=== PATIENT | female | born 1960 | race Caucasian/White ===

== ENCOUNTER 2017-03-31 16:45 | Observation (INO) | payer OTHER ==
[~2017-03-31] VITALS: Ht 167.6 cm; Wt 136.7 kg
[2017-03-31 16:57] VITALS: BP 166/84; PULSE 70; RESP 15; O2SAT 97
--- NOTE | 2017-03-31 17:41 | DRSVH ---
PROCEDURE: X-RAY CHEST ONE VIEW, PORTABLE ([id number]) INDICATIONS: chest pain TECHNIQUE: One view of the chest was acquired. COMPARISON: None. FINDINGS: Surgical changes and devices: None. Lungs and pleura: No pleural effusions or pneumothorax. Lungs are clear. Mediastinum: Mediastinal contours appear normal. Heart size is normal. Bones and chest wall: No suspicious bony lesions. Overlying soft tissues appear unremarkable. IMPRESSION: No radiographic evidence of acute cardiopulmonary pathology. Dictated by: Adonay Mark M.D. on 03/31/2017 at 17:38 Approved by: Adonay Mark M.D. on 03/31/2017 at 17:38
[2017-03-31 17:55] LABS: BASOPHILS % (AUTO) 0.4 % (0-3); EOSINOPHILS % (AUTO) 3.2 % (0-5); MONOCYTES % (AUTO) 6.8 % (4-12); Mean Corpuscular Hemoglobin 28.6 pg (27.0-35.0); Mean Corpuscular Volume 83.3 fL (81-100); NEUTROPHILS % (AUTO) 56.7 % (40-74); Platelet Count 255 bil/L (150-400)
[2017-03-31 18:16] VITALS: BP 143/64; PULSE 71; RESP 16; O2SAT 96
[2017-03-31 18:20] LABS: TROPONIN T < 0.010 ug/L (0.0-0.011)
[2017-03-31 18:26] LABS: Magnesium 2.1 mg/dL (1.6-2.6)
--- NOTE | 2017-03-31 18:31 | ED.REPORT ---
HPI-Chest Pain 40 and Over Date of Service Mar 31, 2017 ED Provider: Sanket Lainez MD A 56 year old female with hypertension, sleep apnea and diabetes is referred to the ED from Urgent Care complaining of chest pressure. The discomfort began yesterday and has waxed and waned since with a maximum severity of 7/10. She felt well last night, but the pressure returned at 09:00 this morning. The pain radiates into her neck and is accompanied by headache and pressure in her ears, though the pt denies nausea. The pain is not exertional. The pt also complains of dyspnea on exertion, which has been present for several months. Nursing Notes Stated Complaint: CHEST PRESSURE Chief Complaint: Chest Pain Nursing Notes Reviewed: Yes ([place], [place] not reconciled) Allergies: Coded Allergies: tetracycline (Verified Allergy, Unknown, THROAT SWELLS, 03/31/17) RESPIRATORY DISTRESS Uncoded Allergies: SOAPS, PERFUMES SCENTS (Allergy, Unknown, 12/30/03) TAPES (Allergy, Unknown, SOME TAPES-SKIN IS REMOVED, 12/30/03) TETRACYCLINE=RESP DISTRESS (Allergy, Unknown, 12/25/03) Tetracyclines (Allergy, Unknown, THROAT SWELLS, 12/30/03) RESPIRATORY DISTRESS Scheduled Acetaminophen (Acetaminophen) 325 Mg Capsule 650 MG PO DAILY Atenolol (Atenolol) 50 Mg Tablet 50 MG PO DAILY Gabapentin (Gabapentin) 300 Mg Capsule 300 MG PO HS Losartan/HCTZ 50-12.5 mg (Losartan/HCTZ 50-12.5 mg) 1 Each Tablet 0.5 TABLET PO DAILY Metformin (Metformin) 500 Mg Tablet 500 MG PO DAILY Scheduled PRN Gabapentin (Gabapentin) 100 Mg Capsule 100 MG PO BIDWM PRN PRN For Restlessness Ibuprofen (Ibuprofen) 200 Mg Capsule 200-400 MG PO BID PRN PRN For Pain General Time Seen by MD: 17:48 Chief Complaint Chest pressure Hx Obtained From: Patient Arrived By: Walk-in Sudden in Onset?: No Onset Occurred: 1 day ago Symptom Duration: Since onset Recent Healthcare: No recent hospitalization, Recent doctor visit Similar Sx Previous: No Past Medical History Past Medical History hypertension Hyperlipidemia (on statin therapy) diabetes (on Metformin) sleep apnea (on BiPAP) Past Surgical History basal cell anterior and posterior vaginal repair excision of hemorrhoidal tag Reports: Cholecystectomy, Hysterectomy, Tonsillectomy Family History Father with [place]/cardiac arrest "during surgery" at 46, required heart transplant, lived an additional 15 years Smoking History Never Smoker Social History Lives in [place] Drug Use: Denies drug use Other Social History: Good social support Ambulatory Status Independent Review of Systems Review of Systems Note: pressure in ears Respiratory: Denies: Non-productive cough Cardiovascular: Reports: Chest pain ("pressure"), Dyspnea on exertion GI: Denies: Abdominal pain, Nausea, Vomiting Musculoskeletal: Reports: Neck pain (pressure radiating from chest), Denies: Back pain Skin: Denies Rash Neurologic: Reports: Headache Complete sys rev & neg: except as marked. Physical Exam Initial Vital Signs Vital Signs (First) Date Time Temp Pulse Resp B/P Pulse Ox O2 Delivery O2 Flow Rate FiO2 03/31/17 16:57 36.9 70 15 166/84 97 Room Air Initial VS: Reviewed, Vital signs normal (HTN) General/Constitutional: Awake, Alert Appearance / Presentation: Positive: Obese Respiratory / Chest: Atraumatic, Breath sounds NL, Breath sounds = bilat, No respiratory distress Cardiovascular: Heart rate NL, Regular rhythm, Heart sounds NL Abdomen: Atraumatic, Soft, Non-tender Neck: Atraumatic, Supple, Full range of motion Back: Atraumatic, Full range of motion Lower Extremity / Pelvis / MS: Atraumatic, Full range of motion Skin: Atraumatic, Color NL, No rash, Warm, Dry Neurologic: Oriented X3, Speech NL, No motor deficits, No sensory deficits Psychiatric: Affect NL, Mood NL Head / Eyes: Atraumatic, Normocephalic, PERRL, EOMI ENT: Atraumatic, Airway patent, Mucous membranes moist Upper Extremity / MS: Atraumatic, Full range of motion Interpretation & Diagnostics Lab Results Interpretation Result Diagram: 03/31/17 1730 03/31/17 1730 Test 03/31/17 17:30 White Blood Count 8.3th/mm3 (3.8-10.1) Red Blood Count 5.28mil/mm3 (3.90-5.20) Hemoglobin 15.1g/dL (12.0-15.6) Hematocrit 44.0% (35.0-46.0) Mean Corpuscular Volume 83.3fL (81-100) Mean Corpuscular Hemoglobin 28.6pg (27.0-35.0) Mean Corpuscular Hemoglobin Concent 34.3% (32.0-37.0) Red Cell Distribution Width 13.7% (12.3-15.4) Platelet Count 255bil/L (150-400) Neutrophils (%) (Auto) 56.7% (40-74) Lymphocytes (%) (Auto) 32.4% (14-46) Monocytes (%) (Auto) 6.8% (4-12) Eosinophils (%) (Auto) 3.2% (0-5) Basophils (%) (Auto) 0.4% (0-3) Urine Color Yellow (YELLOW) Urine Appearance Hazy (CLEAR,HAZY) Urine pH 5.5 (5.0-8.0) Urine Specific [place] 1.020 (1.003-1.035) Urine Protein Negativemg/dL (NEG,TRACE) Urine Glucose (UA) Negativemg/dL (NEGATIVE) Urine Ketones Negativemg/dL (NEGATIVE) Urine Occult Blood Negative (NEGATIVE) Urine Nitrite Negative (NEGATIVE) Urine Bilirubin Negative (NEGATIVE) Urine Urobilinogen Normalmg/dL (NORMAL) Urine Leukocyte Esterase Negative (NEGATIVE) Urine RBC 0-2/hpf (0-2) Urine WBC 0-5/hpf (0-5) Urine Epithelial Cells Many/hpf (NONE-MOD) Urine Crystals None seen (NONE SEEN) Urine Bacteria Moderate/hpf (NONE-FEW) Urine Hyaline Casts None/lpf (NONE) Urine Granular Casts None seen (NONE SEEN) Urine Waxy Casts None seen (NONE SEEN) Urine Red Blood Cell Casts None seen (NONE SEEN) Urine White Blood Cell Casts None seen (NONE SEEN) Urine Mucus None seen (None Seen) Urine Trichomonas None seen (NONE SEEN) Urine Yeast None (NONE SEEN) Urinalysis Comment None Urine Culture Reflexed Indicated Sodium Level 142mEq/L (134-144) Potassium Level 4.1mEq/L (3.5-5.2) Chloride Level 102mEq/L (97-108) Carbon Dioxide Level 23mmol/L (18-29) Blood Urea Nitrogen 17mg/dL (6-24) Creatinine 0.73mg/dL (0.57-1.00) Estimat Glomerular Filtration Rate 118mL/min (>59) Glucose Level 109mg/dL (60-99) Calcium Level 9.9mg/dL (8.5-10.1) Magnesium Level 2.1mg/dL (1.6-2.6) Total Bilirubin 0.6mg/dL (0.0-1.2) Aspartate Amino Transf (AST/SGOT) 32U/L (0-50) Alanine Aminotransferase (ALT/SGPT) 40U/L (0-32) Alkaline Phosphatase 110U/L (25-150) Troponin T < 0.010ug/L (0.0-0.011) Total Protein 7.1g/dL (6.4-8.4) Albumin 4.1g/dL (3.4-5.0) Thyroid Stimulating Hormone (TSH) 3.180uIU/mL (0.450-4.500) Hold Johnson Top Tube Received (Received) Lab Results Interpretation: CBC normal CMP normal ECG Interpretation ECG Interpretation: normal sinus rhythm with a rate of 66 LVH nonspecific T abnormalities, lateral leads anterior ST elevation, probably due to LVH These are new findings compared with EKG from 12/25/2003 Time: 17:23 Interpreted by: ED physician X-Ray Chest Interpretation Chest Xray Interpretation: IMPRESSION: No radiographic evidence of acute cardiopulmonary pathology. Dictated by: Adonay Mark M.D. on 03/31/2017 at 17:38 Approved by: Adonay Mark M.D. on 03/31/2017 at 17:38 Interpretation / Wet Read by: Interpret - Radiologist Re-Eval/Medical Decision Med Decision/Clinical Course This is a 56-year-old female presents with increasing shortness of breath over the past several weeks-to the point that she has to stop and sit down and rest while shopping at [employer], whereas a few months ago she reports she could walk unlimited, who now presents with a 2 day history of substernal chest pressure and heaviness that has been intermediate, associated with fatigue and "not feeling well", and intimately radiates into the jaw. It is not definitively exertional discomfort, and maximal intensity is 7-but is currently resolved. She was referred to the ED by PCP for further evaluation. She has no previous heart disease but has multiple risk factors-diabetes, hypertension, hyperlipidemia as suggested by the fact that she is on statin therapy, and a family history where she talks about her father having had a major cardiac event during the surgery at age 46 and also may require a heart transplant. Additionally the patient has recently been diagnosed with sleep apnea and is started on BiPAP in recent months. She is not currently having active chest discomfort. She is hypertensive and obese, but otherwise has a normal physical exam without findings of venous thromboembolism or heart failure on clinical exam. Lungs are clear, there are no murmurs. EKG is notable for LVH with strain, but it is fairly marked, and his new findings compared to EKG from 2004. Initial lab work is normal. Chest x-ray is negative. The patient's calculated HEART score with her multiple risk factors is 6, which puts her at moderate risk of MACE, and for this reason admission for serial enzymes and further workup with stress testing and/or echo cardiogram are indicated. (Additionally, patient lives in [place]) Patient has received aspirin and Nitropaste in the department. Source of Hx: Old records Time of Eval: 18:52 Patient Status: Condition improved Re-Evaluation/Progress Note: Pt rechecked, who is comfortable. The diagnosis and plan for admission are discussed. The pt understands and agrees with the plan. All questions are addressed at this time. Consultation : Referral / Consult Name: Theo Clark MD Consulted With: Hospitalist Call Returned at: 19:20 Blacksmith Assistant: Agrees with eval, Agrees with plan, Accepts admit Note: Spoke with Dr. Clark, hospitalist, regarding pt's case. Dr. Clark agrees with the evaluation and agrees to admit the pt. Counseled Regarding: Diagnosis, Lab results, Need for admission Discharge & Departure Primary Impression: Chest pain Chest pain type: unspecified Qualified Code: R07.9 - Chest pain, unspecified Additional Impressions: Abnormal EKG Hypertension Hypertension type: unspecified secondary hypertension Qualified Code: I15.9 - Secondary hypertension, unspecified Disposition: ADMITTED TO HOSPITAL Discharge Condition All VS Reviewed: Yes Condition: Stable Referrals: Clara Tian PA-C (PCP) Vladislav Attestation Portions of this note were transcribed by Natividad Michele. I, Dr. Lainez personally performed the history, physical exam and medical decision-making; I reviewed and confirmed the accuracy of the information in the transcribed note. Signed by: Vladislav Garcia, 03/31/2017 and 4099. copies to: Clara Tian PA-C, Matthew F MD Mar 31, 2017 18:31 NATIVIDAD MICHELE Mar 31, 2017 18:50
[2017-03-31] MEDS ORDERED: Nitroglycerin 2% 1 Gm Ointment TOPICAL SCH (18:55)
[2017-03-31] MEDS ORDERED: GABA-502 PO (19:29)
[2017-03-31] MEDS ORDERED: LOSA1TAB69 PO (19:29)
[2017-03-31] MEDS ORDERED: GABA-500 PO (19:29)
[2017-03-31] MEDS ORDERED: IBUP200C PO (19:29)
[2017-03-31] MEDS ORDERED: METF500T4 PO (19:29)
[2017-03-31] MEDS ORDERED: ATEN50TA PO (19:29)
[2017-03-31] MEDS ORDERED: ACET325C PO (19:29)
[2017-03-31] MEDS ORDERED: Alum-Mag Hydrox-Simeth 30 mL Suspension PO PRN ×2 (19:40)
[2017-03-31] MEDS ORDERED: Senna-Docusate 8.6-50 mg Tablet PO PRN (19:40)
[2017-03-31] MEDS ORDERED: Ondansetron 2 mg/mL 2 mL Inj IVPUSH PRN ×2 (19:40)
[2017-03-31] MEDS ORDERED: Polyethylene Glycol (PEG) 17 Gm Powder PO PRN (19:40)
[2017-03-31] MEDS ORDERED: Atropine 1 mg/10 mL (Code) Syringe IVPUSH PRN (19:40)
[2017-03-31 20:15] VITALS: BP 147/82; PULSE 72; RESP 16; O2SAT 99
--- NOTE | 2017-03-31 20:44 | PCM.HPMED ---
Subjective Date of Service Mar 31, 2017 Primary Provider: Admitting Physician: Theo Clark MD Primary Care Physician: Clara Tian PA-C Attending Physician: Theo Clark MD Chief Complaint: chest pain History of Present Illness: 56-year-old female with history of hypertension, CANDELARIA, and type II diabetes who presents to the ED from urgent care for evaluation of substernal chest pressure that began yesterday morning. Patient reports that she was at work yesterday when she noted a substernal chest pressure that was dull and achy and radiated up to her left jaw. She states that the episode lasted approximately one hour and went away with rest. She continued to have intermittent episodes throughout the day without any specific triggers. During the episode she denies any associated diaphoresis, shortness of breath, headache, dizziness, or nausea. She reports work is slow right now and she does not have any increased stress. She generally sleeps flat at night while using her CPAP and has not noted any chest pain in the nighttime. She denies any previous chest pain similar to this. She does report exertional shortness of breath and fatigue in the last 4-5 months, which has mildly improved since using the CPAP. She denies any recent illnesses or travel. She has been taking her medications regularly and the only new medication is Gabapentin for her restless legs. She does have an extensive cardiac history, with reports that her father required a heart transplant at 46. In the ED, she was mildly hypertensive, but vitals were otherwise normal and stable. She received a full dose of aspirin. Her bloodwork was reassuring with neg trop x1. Her EKG was interesting with marked LVH and nonspecific St changes. Review of Systems: Comprehensive review of systems was conducted with the patient and found to be negative except as noted above in HPI. Allergies Coded Allergies: tetracycline (Verified Allergy, Unknown, THROAT SWELLS, 03/31/17) RESPIRATORY DISTRESS Uncoded Allergies: Air Born Cinnamon (Allergy, Severe, Shortness of Breath, 04/01/17) Cause Pneumonia per pt SOAPS, PERFUMES SCENTS (Allergy, Unknown, 12/30/03) TAPES (Allergy, Unknown, SOME TAPES-SKIN IS REMOVED, 12/30/03) TETRACYCLINE=RESP DISTRESS (Allergy, Unknown, 12/25/03) Tetracyclines (Allergy, Unknown, THROAT SWELLS, 12/30/03) RESPIRATORY DISTRESS [email or web address] Medication Name Directions atenolol 50 mg tablet TAKE 1 TABLET BY ORAL ROUTE EVERY DAY Claritin Liqui-Gel 10 mg capsule cyclobenzaprine 10 mg tablet take 1 tablet by oral route 3 times every day gabapentin 300 mg capsule take 1 capsule by oral route 2 times every day losartan 50 mg-hydrochlorothiazide 12.5 mg tablet TAKE 1 TABLET BY ORAL ROUTE EVERY DAY for high blood pressure. metformin 500 mg tablet TAKE 1 TABLET BY ORAL ROUTE 2 TIMES EVERY DAY WITH MORNING AND EVENING MEALS Nasonex 50 mcg/actuation [place] spray 2 spray by intranasal route every day in each nostril valacyclovir 1 gram tablet take 1 tablet by oral route every 24 hours PMH Essential hypertension Type II diabetes mellitus diet-controlled Morbid obesity Hyperlipidemia CANDELARIA on CPAP B12 deficiency Surgical History Rectocele and cystocele repair with bladder suspension Cholecystectomy Partial hysterectomy Tonsillectomy Family History Extensive family history of diabetes and heart disease Social History Occupation: chief accountant Hx Alcohol Use: No Hx Substance Use: No Smoking Status: Never Smoker Living Arrangement: with Family Exam Vital Signs Vital Sign - Last Date Time Temp Pulse Resp B/P Pulse Ox O2 Delivery O2 Flow Rate FiO2 03/31/17 20:15 36.8 72 16 147/82 99 Room Air Exam General: Morbidly obese female who appears in no acute distress HEENT: Normocephalic, atraumatic. External ears without defect. PERRLA, EOMI. Anicteric sclerae, moist conjunctivae, and no lid lag. Oropharynx free of erythema and cobble stoning with moist mucosa. Neck: Supple with full range of motion. No jugular venous distension. Cardiovascular: Somewhat distant heart sounds but is Regular rate and rhythm with soft systolic murmur Pulmonary: Clear to auscultation bilaterally with no crackles, wheezes, or rhonchi. Normal respiratory effort with no use of accessory muscles. Abdomen: Obese, Bowel tones present. Soft, nontender, nondistended. Extremities: There is 1-2+ pitting edema of bilateral lower extremities from feet up to midshin Skin: Normal temperature, turgor, and texture; there were some erythema over bilateral cheeks Neurological: Cranial nerves grossly intact. Normal muscle strength, tone, and bulk. Reflexes, coordination, and sensory function within normal limits. Psychiatric: Normal mood and affect. Alert and oriented to person, place, and time. Cooperative and pleasant Lab and Diagnostics Result Diagram: 03/31/17172903/31/17 1730 X-Rays, CTs and MRIs ECG Interpretation: normal sinus rhythm with a rate of 66 LVH nonspecific T abnormalities, lateral leads anterior ST elevation, probably due to LVH These are new findings compared with EKG from 12/25/2003 Time: 17:23 Interpreted by: ED physician X-Ray Chest Interpretation Chest Xray Interpretation: IMPRESSION: No radiographic evidence of acute cardiopulmonary pathology. Dictated by: Adonay Mark M.D. on 03/31/2017 at 17:38 Approved by: Adonay Mark M.D. on 03/31/2017 at 17:38 Interpretation / Wet Read by: Interpret - Radiologist Assessment & Plan 56-year-old female with history of hypertension, CANDELARIA, and type II diabetes who presents to the ED from urgent care for evaluation of substernal chest pressure that began yesterday morning. Admitted for ACS rule out Chest pain, POA With patient's comorbidities and family history, she is at high risk of MACE. Her CP does not appear to be exertional in nature. With her LVH on EKG, systolic heart murmur, and BLE pitting edema, Heart failure may also be underlying. Baby aspirin daily, which should be continued on discharge also Placed on telemetry for CV monitoring Heart healthy/consistent carb diet Echocardiogram in a.m. Exercise stress test ordered We will plan to hold her beta kamar and caffeine in the a.m. Nitroglycerin sublingual and morphine prn chest pain Essential hypertension, POA Was moderately hypertensive on admission, but has improved without any interventions We will plan to continue her hydrochlorothiazide and lisinopril Type II diabetes, POA Last A1c in December was 6.1, patient is only on metformin We will plan to hold metformin and place on low-dose lispro correctional scale Obstructive sleep apnea, POA We will continue CPAP at night Hyperlipidemia, POA Patient not on any statin therapy and no lipid profile noted in outpatient records, will order lipid panel BMI 47.3 Encouraged healthy diet and exercise Will need a bariatric bed Tylenol as needed for fever Zofran as needed for nausea CODE STATUS: Full resuscitation Patient is admitted under observation status with expected length of stay less than 2 midnights due to severity of presenting symptoms, risk of adverse event, and complexity of treatment plan. Pain Evaluation: Adequate Pain Control VTE Prophylaxis: Sub-Q Enoxaparin Resuscitation Status: CPR: Attempt Resuscitation Attending Statement The patient was seen and examined together with Dr. Ward on 03/31 and I agree with the history, exam and plan as outlined in the note above. Boo Ward DO Mar 31, 2017 20:18 Theo Clark MD Apr 01, 2017 03:32
[2017-03-31] MEDS ORDERED: Glucose 40% Oral Gel 15 Gm Tube PO PRN (20:55)
--- NOTE | 2017-03-31 20:55 | NUR ---
Admission note Pt admitted [place] [facility] [place] at 2031, alert and orientedx3, denies chest pain or pressure,denies SOB/N/V/Fever/chills. BP 150/82 HR 72 RR18 SPO2 97% on RA,afebrile. Lung sounds clear, decreased lung sounds bilaterally,maybe r/o obesity, HR regular, Tele: SR 85 per principal technical specialist. Abdomen soft,nontender, BT active. 1+Pitting edema at bilateral LEs. Pt informed NPO after MN for stress test tomorrow,and no Caffeine 24hr prior to Stress test, last caffeine drink at noon today. Call light oriented to pt and within reach. Care ongoing.
[2017-03-31 21:03] VITALS: BP 150/82; PULSE 72; RESP 18; O2SAT 97
[2017-03-31 21:08] LABS: APPEARANCE,URINE HAZY (CLEAR,HAZY); COLOR,URINE YELLOW (YELLOW); OCCULT BLOOD,URINE NEGATIVE (NEGATIVE); PH,URINE 5.5 (5.0-8.0); UROBILINOGEN,URINE NORMAL (NORMAL)
[2017-03-31] MEDS: Insulin LISPRO 300 Unit/3 mL Inj SUBQ SCH (22:00)
[2017-04-01] VITALS (7 sets, daily range): BP systolic 147–169; BP diastolic 62–83; PULSE 54–79; RESP 17–18; O2SAT 96–97
[2017-04-01] MEDS: Sodium Chloride LOK Flush 10 mL Syringe IVFLUSH SCH ×2 (01:09→08:30)
[2017-04-01 06:05] LABS: BASOPHILS % (AUTO) 0.5 % (0-3); EOSINOPHILS % (AUTO) 4.1 % (0-5); MONOCYTES % (AUTO) 8.2 % (4-12); Mean Corpuscular Hemoglobin 28.5 pg (27.0-35.0); Mean Corpuscular Volume 84.5 fL (81-100); NEUTROPHILS % (AUTO) 48.1 % (40-74); Platelet Count 207 bil/L (150-400)
[2017-04-01] MEDS: Insulin LISPRO 300 Unit/3 mL Inj SUBQ SCH ×2 (08:00→12:00)
[2017-04-01] MEDS ORDERED: MeTOProlol 1 mg/mL 5 mL Inj IVPUSH ONE (09:35)
--- NOTE | 2017-04-01 09:42 | NUR ---
Stress test: Patient was brought back to her room due to hypertension. She was given Metoprolol 5mg IV in [facility] and her B/P was still in the 200 range. Rechecked B/P once back to her room and it is 168/67 pulse 66. Per Amlodipine 10mg PO and her Losartan 25 mg PO was given to bring the B/P down so patient can have stress test later today after her B/P is acceptable for the test. Addendum: 04/01/17 at 1321 by ABEL WORTHY RN Patient was brought down to her cardiac stress test at 1300. Her blood pressure is 147/83 pule 54 now info was relayed to [facility] lab via voice mail. Tylenol was given to patient for her head ache from no coffee this morning.
[2017-04-01] MEDS ORDERED: MeTOProlol 1 mg/mL 5 mL Inj IV ONE (14:00)
--- NOTE | 2017-04-01 16:21 | NUR ---
Social Work: Brief Note / Multidisciplinary Rounds Data: Pt is a 56 y/o female admitted for chest pain. Pt's PCP is Dr Tian, pt's insurance is [facility]. EMR reviewed, pt discussed in rounds. MD states pt likely to d/c today pending results of stress test. No d/c planning needs anticipated at this time. METER MECHANIC will continue to follow if needs arise. Assessment: Pt who is independent at baseline, capable of self care at this time. Plan: Pt will d/c home via POV when medically stable, possibly today. METER MECHANIC will continue to follow. JEFF Seth
--- NOTE | 2017-04-01 17:01 | DRSVH ---
PROCEDURE: 1 DAY PHARMACOLOGICAL STRESS TEST Rest and pharmacological stress myocardial perfusion SPECT with gated imaging and ejection fraction RADIOPHARMACEUTICAL: 16.1 mCi Tc-99m tetrafosmin IV at rest and 44 mCi Tc-99m tetrafosmin IV at peak effect of pharmacological stress. A [id number] was performed. INDICATIONS: CHEST PAIN TECHNIQUE: Radiopharmaceutical was injected at peak stress test, and also at rest. SPECT images wer e obtained. SPECT myocardial perfusion images were displayed in short axis, horizontal long axis, an d vertical long axis views. Gated images were reviewed using Datadec[employer] software. COMPARISON: None. CARDIAC STRESS: A pharmacologic stress test was performed under the supervision of an attending staff, using an infus ion of [employer]ine[employer]isc[employer] . Hemodynamic data: There is normal blood pressure and heart rate response to pharmacologic stress. Symptoms: The patient denied anginal chest pain. Aminophylline: none EKG: Baseline ECG shows sinus rhythm with nonspecific ST changes - no significant change with stress . FINDINGS: Raw data: There is good myocardial uptake of radiotracer. No significant motion artifacts. Left ventricle function: Gated images demonstrate normal left ventricular wall thickening. No segme ntal wall motion abnormalities. Left ventricle resting end diastolic volume is 97 mL. Left ventricl e stress ejection fraction is 73% ; normal range is above 45%. Myocardial perfusion: There is small area of mildly decreased uptake affecting the apical anterolate ral segment and a small area of the anteroseptal segment - all of this appears fixed on the rest and stress images. Review of the raw data suggests that breast attenuation artifact and LAD groove artif act are likely contributors to these findings. This area moves/thickens on the gated images. No oth er imaging defects appreciated. IMPRESSION: 1. Appropriate hemodynamic response to pharmacologic stress. 2. No chest pain or significant ECG changes with stress. 3. No scintigraphic evidence for significant areas of myocardial ischemia at the level of stress achi eved. 4. Normal left ventricular size and systolic function. Dictated by: Aditi Schmidt M.D. on 04/01/2017 at 16:53 Approved by: Aditi Schmidt M.D. on 04/01/2017 at 16:58
--- NOTE | 2017-04-01 17:09 | PCM.DIMED ---
Discharge Instructions Date of Service Apr 01, 2017 Dates of Hospitalization Mar 31, 2017 at 19:31 Discharge Diagnosis Discharge Diagnosis # Chest pain, POA ACS ruled out #Essential hypertension, POA #Type II diabetes, POA #Obstructive sleep apnea, POA # Hyperlipidemia, POA #BMI 47.3 Diet Discharge Diet: Low fat, Low Sodium, Heart Healthy, Diabetic Activity Discharge Activity: Limited until seen by PCP Call your provider Call your provider for: Fever or Chills, Shortness of breath, Bleeding, Chest pain, Vomitting, Excessive diarrhea, Weakness (unilateral) Patient Instructions Patient Instructions You were hospitalized due to chest pain. pain resolved . EKG ,cardiac markers and stress test negative for heart attack . Pain possibly from acid reflux . Please take omeperazole 20 mg twice daily . please follow up with PCP in 1 week . Follow-up Provider: Clara Tian PA-C Follow-up with PCP in: 1 week Sam Givens MD Apr 01, 2017 17:09
[2017-04-01] MEDS ORDERED: ASPI-973 PO (17:10)
[2017-04-01] MEDS ORDERED: OMEP20CA11 PO (17:10)
--- NOTE | 2017-04-01 17:27 | NUR ---
spiritual care: pt request pt requesting directive info and guidance. written resource (5 wishes) and other resources provided, brief discussion about process. "my family and i will have different ideas about it" many family members in room, supportive
--- NOTE | 2017-04-01 18:13 | PCM.DC.MED ---
Discharge Summary Date of Service Apr 01, 2017 Dates of Hospitalization Date of Hospital Admission Mar 31, 2017 at 19:31 Date of Discharge: Apr 01, 2017 Providers: Admitting Physician: Theo Clark MD Primary Care Physician: Clara Tian PA-C Attending Physician: Sam Moulton MD Diagnosis at Time of Discharge Diagnosis at Time of Discharge # Chest pain, POA ACS ruled out #Essential hypertension, POA #Type II diabetes, POA #Obstructive sleep apnea, POA # Hyperlipidemia, POA #BMI 47.3 Procedures XRay, CTs & MRIs ECG Interpretation: normal sinus rhythm with a rate of 66 LVH nonspecific T abnormalities, lateral leads anterior ST elevation, probably due to LVH These are new findings compared with EKG from 12/25/2003 Time: 17:23 Interpreted by: ED physician X-Ray Chest Interpretation Chest Xray Interpretation: IMPRESSION: No radiographic evidence of acute cardiopulmonary pathology. Dictated by: Adonay Mark M.D. on 03/31/2017 at 17:38 Approved by: Adonay Mark M.D. on 03/31/2017 at 17:38 Interpretation / Wet Read by: Interpret - Radiologist Other Diagnostics PROCEDURE: 1 DAY PHARMACOLOGICAL STRESS TEST Rest and pharmacological stress myocardial perfusion SPECT with gated imaging and ejection fraction IMPRESSION: 1. Appropriate hemodynamic response to pharmacologic stress. 2. No chest pain or significant ECG changes with stress. 3. No scintigraphic evidence for significant areas of myocardial ischemia at the level of stress achieved. 4. Normal left ventricular size and systolic function. Dictated by: Aditi Schmidt M.D. on 04/01/2017 at 16:53 Brief History per HPI 56-year-old female with history of hypertension, CANDELARIA, and type II diabetes who presents to the ED from urgent care for evaluation of substernal chest pressure that began yesterday morning. Patient reports that she was at work yesterday when she noted a substernal chest pressure that was dull and achy and radiated up to her left jaw. She states that the episode lasted approximately one hour and went away with rest. She continued to have intermittent episodes throughout the day without any specific triggers. During the episode she denies any associated diaphoresis, shortness of breath, headache, dizziness, or nausea. She reports work is slow right now and she does not have any increased stress. She generally sleeps flat at night while using her CPAP and has not noted any chest pain in the nighttime. She denies any previous chest pain similar to this. She does report exertional shortness of breath and fatigue in the last 4-5 months, which has mildly improved since using the CPAP. She denies any recent illnesses or travel. She has been taking her medications regularly and the only new medication is Gabapentin for her restless legs. She does have an extensive cardiac history, with reports that her father required a heart transplant at 46. In the ED, she was mildly hypertensive, but vitals were otherwise normal and stable. She received a full dose of aspirin. Her bloodwork was reassuring with neg trop x1. Her EKG was interesting with marked LVH and nonspecific St changes. Hospital Course 56-year-old female with history of hypertension, CANDELARIA, and type II diabetes who presents to the ED from urgent care for evaluation of substernal chest pressure that began yesterday morning. Admitted for ACS rule out # Chest pain, POA With patient's comorbidities and family history, she is at high risk of MACE. Her CP does not appear to be exertional in nature. With her LVH on EKG, systolic heart murmur, and BLE pitting edema, Heart failure may also be underlying -.started Baby aspirin daily, which should be continued on discharge Exercise stress test negative Continue aspirin and atenolol -Chest pain may be due to acid reflux. Prescribed omeprazole #Essential hypertension, LEELA Was moderately hypertensive on admission, but has improved without any interventions continue her hydrochlorothiazide and lisinopril #Type II diabetes, POA Last A1c in December was 6.3, patient is only on metformin Resume metformin #Subclinical hyperthyroidism -TSH 5.4, normal free T4 -Follow-up TFT outpatient #Obstructive sleep apnea, POA will continue CPAP at night #Hyperlipidemia, POA Patient not on any statin therapy and no lipid profile noted in outpatient records, LDL 135 , advised to discuss with PCP and may start statins #BMI 47.3 Encouraged healthy diet and exercise Discharged to home. Condition on discharge stable Follow-up with PCP in 1 week Exam Vital Signs (Last) Date Time Temp Pulse Resp B/P Pulse Ox O2 Delivery O2 Flow Rate FiO2 04/01/17 12:41 54 18 147/83 Room Air 04/01/17 09:49 36.9 96 Exam General: Morbidly obese female who appears in no acute distress HEENT: Normocephalic, atraumatic. External ears without defect. PERRLA, EOMI. Anicteric sclerae, moist conjunctivae, and no lid lag. Oropharynx free of erythema and cobble stoning with moist mucosa. Neck: Supple with full range of motion. No jugular venous distension. Cardiovascular: Somewhat distant heart sounds but is Regular rate and rhythm with soft systolic murmur Pulmonary: Clear to auscultation bilaterally with no crackles, wheezes, or rhonchi. Normal respiratory effort with no use of accessory muscles. Abdomen: Obese, Bowel tones present. Soft, nontender, nondistended. Extremities: There is 1-2+ pitting edema of bilateral lower extremities from feet up to midshin Skin: Normal temperature, turgor, and texture; there were some erythema over bilateral cheeks Neurological: Cranial nerves grossly intact. Normal muscle strength, tone, and bulk. Reflexes, coordination, and sensory function within normal limits. Psychiatric: Normal mood and affect. Alert and oriented to person, place, and time. Cooperative and pleasant Test 03/31/17 17:30 04/01/17 05:37 04/01/17 12:58 Urine Color Yellow (YELLOW) Urine Appearance Hazy (CLEAR,HAZY) Urine pH 5.5 (5.0-8.0) Urine Specific [place] 1.020 (1.003-1.035) Urine Protein Negativemg/dL (NEG,TRACE) Urine Glucose (UA) Negativemg/dL (NEGATIVE) Urine Ketones Negativemg/dL (NEGATIVE) Urine Occult Blood Negative (NEGATIVE) Urine Nitrite Negative (NEGATIVE) Urine Bilirubin Negative (NEGATIVE) Urine Urobilinogen Normalmg/dL (NORMAL) Urine Leukocyte Esterase Negative (NEGATIVE) Urine RBC 0-2/hpf (0-2) Urine WBC 0-5/hpf (0-5) Urine Epithelial Cells Many/hpf (NONE-MOD) Urine Crystals None seen (NONE SEEN) Urine Bacteria Moderate/hpf (NONE-FEW) Urine Hyaline Casts None/lpf (NONE) Urine Granular Casts None seen (NONE SEEN) Urine Waxy Casts None seen (NONE SEEN) Urine Red Blood Cell Casts None seen (NONE SEEN) Urine White Blood Cell Casts None seen (NONE SEEN) Urine Mucus None seen (None Seen) Urine Trichomonas None seen (NONE SEEN) Urine Yeast None (NONE SEEN) Urinalysis Comment None Urine Culture Reflexed Indicated Hemoglobin A1c 6.3% (4.8-5.6) Magnesium Level 2.1mg/dL (1.6-2.6) Total Bilirubin 0.6mg/dL (0.0-1.2) Aspartate Amino Transf (AST/SGOT) 32U/L (0-50) Alanine Aminotransferase (ALT/SGPT) 40U/L (0-32) Alkaline Phosphatase 110U/L (25-150) Total Protein 7.1g/dL (6.4-8.4) Albumin 4.1g/dL (3.4-5.0) Hold Johnson Top Tube Received (Received) White Blood Count 6.4th/mm3 (3.8-10.1) Red Blood Count 4.98mil/mm3 (3.90-5.20) Hemoglobin 14.2g/dL (12.0-15.6) Hematocrit 42.1% (35.0-46.0) Mean Corpuscular Volume 84.5fL (81-100) Mean Corpuscular Hemoglobin 28.5pg (27.0-35.0) Mean Corpuscular Hemoglobin Concent 33.7% (32.0-37.0) Red Cell Distribution Width 13.8% (12.3-15.4) Platelet Count 207bil/L (150-400) Neutrophils (%) (Auto) 48.1% (40-74) Lymphocytes (%) (Auto) 38.3% (14-46) Monocytes (%) (Auto) 8.2% (4-12) Eosinophils (%) (Auto) 4.1% (0-5) Basophils (%) (Auto) 0.5% (0-3) Sodium Level 143mEq/L (134-144) Potassium Level 4.2mEq/L (3.5-5.2) Chloride Level 108mEq/L (97-108) Carbon Dioxide Level 23mmol/L (18-29) Blood Urea Nitrogen 20mg/dL (6-24) Creatinine 0.68mg/dL (0.57-1.00) Estimat Glomerular Filtration Rate 128mL/min (>59) Glucose Level 129mg/dL (60-99) Calcium Level 9.2mg/dL (8.5-10.1) Triglycerides Level 117mg/dL (0-149) Cholesterol Level 198mg/dL (100-199) LDL Cholesterol, Calculated 135.600mg/dL (0-99) VLDL Cholesterol 23.400mg/dL HDL Cholesterol 39mg/dL (>39) Cholesterol/HDL Ratio 5.08 (0.0-4.4) Thyroid Stimulating Hormone (TSH) 5.390uIU/mL (0.450-4.500) Troponin T < 0.010ug/L (0.0-0.011) Free Thyroxine 1.32ng/dL (0.82-1.77) Discharge Medications Discharge Medications Aspirin (Aspirin) 81 Mg Tablet 81 MG PO DAILY Prescribed by: SAM MOULTON MD Atenolol (Atenolol) 50 Mg Tablet 50 MG PO DAILY (Reported) Gabapentin (Gabapentin) 300 Mg Capsule 300 MG PO HS (Reported) Losartan/HCTZ 50-12.5 mg (Losartan/HCTZ 50-12.5 mg) 1 Each Tablet 0.5 TABLET PO DAILY (Reported) Metformin (Metformin) 500 Mg Tablet 500 MG PO DAILY (Reported) Omeprazole (Omeprazole) 20 Mg Capsule.dr 20 MG PO BID Prescribed by: SAM MOULTON MD As needed Acetaminophen (Acetaminophen) 325 Mg Capsule 650 MG PO DAILY PRN PRN for back pain (Reported) Gabapentin (Gabapentin) 100 Mg Capsule 100 MG PO BIDWM PRN PRN For Restlessness (Reported) Ibuprofen (Ibuprofen) 200 Mg Capsule 200-400 MG PO BID PRN PRN For Pain ( Reported) Followup Plan Disposition: Home Discharge Diet: Low fat, Low Sodium, Heart Healthy, Diabetic Discharge Activity: Limited until seen by PCP Patient Instructions You were hospitalized due to chest pain. pain resolved . EKG ,cardiac markers and stress test negative for heart attack . Pain possibly from acid reflux . Please take omeperazole 20 mg twice daily . please follow up with PCP in 1 week . Follow-up Provider: Clara Tian PA-C Follow-up with PCP in: 1 week copies to: Clara Tian PA-C, Melaku MD Apr 01, 2017 18:13 Sam Moulton MD Apr 01, 2017 18:13
--- NOTE | 2017-04-01 19:25 | NUR ---
Discharge Nursing Note: Patient was discharged to home at 1830. Her IV was removed intact. Her telemetry was discontinued . Patients discharge information was reviewed with her and her questions were answered to her satisfaction. Patient was escorted to the hospital lobby by nursing staff member and she was driven to home by her daughter.
== END 2017-04-01 18:34 | disposition home or self-care (01) ==
LOC: SED 16:45 → MPC 19:31
PROVIDERS: ADMIT Hospitalist; ATTEND Internal Medicine
DX: R07.9 Chest pain, unspecified (principal); I10 Essential (primary) hypertension; E11.9 Type 2 diabetes mellitus without complications; G47.33 Obstructive sleep apnea (adult) (pediatric); E78.5 Hyperlipidemia, unspecified; E66.01 Morbid (severe) obesity due to excess calories; Z68.42 Body mass index [BMI] 45.0-49.9, adult; E05.90 Thyrotoxicosis, unspecified without thyrotoxic crisis or storm; G25.81 Restless legs syndrome; E53.8 Deficiency of other specified B group vitamins; Z79.82 Long term (current) use of aspirin; Z79.84 Long term (current) use of oral hypoglycemic drugs
CPT/HCPCS: 36415; 71010; 78452; 80048; 80053; 80061; 81000; 82948; 83036; 83735; 84439; 84443; 84484; 85025; 87086; 87088; 93005; 93017; 96374; 99285; A9502; C8929; G0378; J1650; J2785; Q9957